=== PATIENT | male | born 1945 | race Caucasian/White ===

== ENCOUNTER 2018-06-19 22:04 | Emergency (ER) | payer MEDICARE, OTHER ==
--- NOTE | 2018-06-19 22:30 | EDM.PDOC ---
ED HPI GENERAL MEDICAL PROBLEM - General Chief Complaint: Genitourinary Problem Stated Complaint: Urinary retention Time Seen by Provider: 06/19/18 22:15 Source of Information: Reports: Patient History Limitations: Reports: No Limitations - History of Present Illness INITIAL COMMENTS - FREE TEXT/NARRATIVE: 73 YO WM presents to ER with urinary retention. Pt had outpatient inguinal hernia repair done today in [place] and was sent home without complications. Pt states he last urinated prior to surgery at 10:30 this am. Pt states he tried to urinate when he got home but was unable and it became very uncomfortable prompting ER evaluation. Onset: Today Duration: Getting Worse Quality: Reports: Ache Severity: Severe Improves with: Reports: None Worsens with: Reports: None Associated Symptoms: Reports: No Other Symptoms ED ROS GENERAL - Review of Systems Review Of Systems: See Below Constitutional: Reports: No Symptoms HEENT: Reports: No Symptoms Respiratory: Reports: No Symptoms Cardiovascular: Reports: No Symptoms Endocrine: Reports: No Symptoms GI/Abdominal: Reports: No Symptoms : Reports: Urinary Retention Musculoskeletal: Reports: No Symptoms Skin: Reports: No Symptoms Neurological: Reports: No Symptoms Psychiatric: Reports: No Symptoms Hematologic/Lymphatic: Reports: No Symptoms Immunologic: Reports: No Symptoms ED EXAM, RENAL/ - Physical Exam Exam: See Below Exam Limited By: No Limitations General Appearance: Alert, WD/WN, Mild Distress Head: Atraumatic, Normocephalic Neck: Normal Inspection, Supple, Non-Tender, Full Range of Motion Respiratory/Chest: No Respiratory Distress, Lungs Clear, Normal Breath Sounds, No Accessory Muscle Use, Chest Non-Tender Cardiovascular: Normal Peripheral Pulses, Regular Rate, Rhythm, No Edema, No Gallop, No JVD, No Murmur, No Rub GI/Abdominal: Normal Bowel Sounds, Soft, Non-Tender, No Organomegaly, No Distention, No Abnormal Bruit, No Mass, Tender (suprapubic) Back Exam: Normal Inspection, Full Range of Motion, NT Extremities: Normal Inspection, Normal Range of Motion, Non-Tender, Normal Capillary Refill, No Pedal Edema Neurological: Alert, Oriented, CN II-XII Intact, Normal Cognition, Normal Gait, Normal Reflexes, No Motor/Sensory Deficits Psychiatric: Normal Affect, Normal Mood Skin Exam: Warm, Dry, Intact, Normal Color, No Rash Lymphatic: No Adenopathy Course - Radiology Interpretation Free Text/Narrative:: Urinary gonzalez placed- 700cc urine drained without complications Departure - Departure Time of Disposition: 22:36 Disposition: Home, Self-Care 01 Condition: Good Clinical Impression: Retention of urine - Discharge Information Instructions: Indwelling Urinary Catheter Insertion Referrals: Keke Hendrickson MD [Physician] - Forms: ED Department Discharge Additional Instructions: 1. discharge home 2. follow up in [facility] next 24-48 hours for cath removal and bladder training 3. return to ER for worsening symptoms - Assessment/Plan Assessment:: 1. Urinary retention- resolved after gonzalez placement Plan: 1. discharge home 2. follow up in [facility] next 24-48 hours for cath removal and bladder training 3. return to ER for worsening symptoms
== END 2018-06-19 22:47 | disposition home or self-care (01) ==
LOC: KA.ED 22:04
DX: R33.9 Retention of urine, unspecified (principal)
CPT/HCPCS: 51702; 99283

== ENCOUNTER 2019-07-17 14:35 | Emergency (ER) | payer MEDICARE, OTHER ==
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
[2019-07-17] MEDS ORDERED: Bacitracin Oint 30 GM Tube TOP SCH (15:15)
== END 2019-07-17 15:35 | disposition home or self-care (01) ==
LOC: KA.ED 14:35
DX: T23.252A Burn of second degree of left palm, initial encounter (principal); T23.221A Burn of second degree of single right finger (nail) except thumb, initial encounter; I10 Essential (primary) hypertension; Z88.0 Allergy status to penicillin
CPT/HCPCS: 16020; 99283

== ENCOUNTER 2021-09-19 09:32 | Emergency (ER) | payer MEDICARE, OTHER | END 2021-09-19 10:40 | disposition home or self-care (01) | LOC: KA.ED 09:32 | DX: L76.82 Other postprocedural complications of skin and subcutaneous tissue (principal); E78.00 Pure hypercholesterolemia, unspecified; I10 Essential (primary) hypertension; Z95.1 Presence of aortocoronary bypass graft; Z88.0 Allergy status to penicillin | CPT/HCPCS: 99283 ==